=== PATIENT | male | born 1955 | race Caucasian/White ===

== ENCOUNTER 2021-01-03 08:00 | Outpatient (CLI) | payer OTHER ==
[~2021-01-03 08:00] MED LIST: ALLEGRA ALLERG180 MG PO; ASA81 MG; GILTUSS TR TAB1 EACH PO; LIPITOR20 MG; PROVENTIL3 ML/2.5 M IH; ZITHROMAX500 MG PO; ZYRTEC10 MG PO
== END 2021-01-03 08:30 | disposition home or self-care (01) ==
LOC: PPH VACUNA 08:00
DX: Z23 Encounter for immunization (principal)